=== PATIENT | male | born 1955 | race Caucasian/White ===

== ENCOUNTER 2020-11-17 19:29 | Emergency (ER) | payer MEDICAID, MEDICARE ==
[2020-11-17] MEDS ORDERED: fentaNYL 100 MCG/2 ML SDV IVPUSH ONE (20:33)
[2020-11-17] MEDS: Sodium Chloride 0.9% 10 ML Syringe FLUSH PRN ×2 (20:47→22:39)
[2020-11-17] MEDS ORDERED: Ondansetron 4 MG/2 ML SDV IVPUSH ONE (20:50)
[2020-11-17] MEDS ORDERED: Sodium Chloride 0.9% 10 ML SDV FLUSH ONE (22:24)
[2020-11-17] MEDS ORDERED: Iopamidol 612 MG/ML 100 ML Bottle IV PRN (22:24)
[2020-11-17] MEDS ORDERED: methylPREDNISolone Sod Succ 250 MG in Dextrose 5% in Water 100 ML IV ONE ×2 (22:24)
[2020-11-17] MEDS ORDERED: Clindamycin Phosphate 900 MG in Sodium Chloride 0.9% 100 ML IV ONE (22:27)
[2020-11-17] MEDS ORDERED: Sodium Chloride 0.9% 100 ML IV SCH (22:30)
[2020-11-17] MEDS ORDERED: Sodium Chloride 0.9% 1,000 ML IV SCH (22:30)
--- NOTE | 2020-11-18 00:22 | EDM.PDOC ---
<Korina Medeiros - Last Filed: 11/18/20 00:26> ED HPI GENERAL MEDICAL PROBLEM - General Chief Complaint: ENT Problem Stated Complaint: SORE THROAT Time Seen by Provider: 11/17/20 20:45 Source of Information: Reports: Patient, Family, RN Notes Reviewed History Limitations: Reports: No Limitations - History of Present Illness INITIAL COMMENTS - FREE TEXT/NARRATIVE: Nirmal presents today for complaints of sore throat for 7 to 9 days. He states he was recently informed he was diabetic and started use of metformin. He reports pain with swallowing, eating and difficulty swallowing. He denies fever, chills, nausea, vomiting, change in bowel/bladder function. He has not tried use of any OTC medications. throat Pain Score (Numeric/FACES): 8 - Related Data Allergies Allergy/AdvReac Type Severity Reaction Status Date / Time No Known Allergies Allergy Verified 11/17/20 20:15 Home Meds: Home Meds Empagliflozin [Jardiance] 10 mg PO DAILY 11/17/20 [History] metFORMIN [Glucophage] 500 mg PO BIDMEALS 11/17/20 [History] Past Medical History Endocrine/Metabolic History: Reports: Diabetes, Type II, Other (See Below) Other Endocrine/Metabolic History: diagnosed on wednesday11/15/20 - Infectious Disease History Infectious Disease History: Reports: Chicken Pox, Measles, Mumps - Past Surgical History GI Surgical History: Reports: Appendectomy, Cholecystectomy, Hernia, Abdominal Endocrine Surgical History: Reports: None Social & Family History - Family History Family Medical History: No Pertinent Family History - Tobacco Use Tobacco Use Status *Q: Never Tobacco User - Recreational Drug Use Recreational Drug Use: No ED ROS ENT - Review of Systems Review Of Systems: See Below Constitutional: Reports: No Symptoms HEENT: Reports: Throat Pain, Throat Swelling. Denies: Ear Discharge, Ear Pain, Nose Pain, Sinus Problem Respiratory: Denies: Shortness of Breath, Wheezing, Cough, Sputum Cardiovascular: Reports: No Symptoms Endocrine: Reports: No Symptoms GI/Abdominal: Reports: No Symptoms : Reports: No Symptoms Musculoskeletal: Reports: No Symptoms Skin: Reports: No Symptoms Neurological: Reports: No Symptoms Psychiatric: Reports: No Symptoms Hematologic/Lymphatic: Reports: No Symptoms Immunologic: Reports: No Symptoms ED EXAM, ENT - Physical Exam Exam: See Below Exam Limited By: No Limitations General Appearance: Alert, WD/WN, Mild Distress Eye Exam: Bilateral Eye: Normal Inspection, PERRL Ears: Normal External Exam, Normal Canal, Hearing Grossly Normal, Normal TMs. No: Canal Discharge, TM Bulging, TM Erythema Nose: Normal Inspection, Normal Mucousa, No Blood Mouth/Throat: Muffled Voice, Throat Pain, Throat Swelling, Tonsillar Erythema (right side, unable to visualize uvula due to edema. Airway maintained, no wheezing or stridor. ), Tonsillar Swelling, Trismus. No: Tonsillar Exudates Head: Atraumatic, Normocephalic Neck: Limited Range of Motion, Lymphadenopathy (R), Tender Lateral Respiratory/Chest: No Respiratory Distress, Lungs Clear, Normal Breath Sounds, No Accessory Muscle Use, Chest Non-Tender. No: Crackles, Rales, Rhonchi, Wheezing Cardiovascular: Normal Peripheral Pulses, Regular Rate, Rhythm, No Edema, No Gallop, No Murmur, No Rub Back: Normal Inspection, Full Range of Motion Extremities: Normal Inspection, Normal Range of Motion, Non-Tender, No Pedal Edema, Normal Capillary Refill Neurological: Alert, Oriented, Normal Cognition, Normal Gait Psychiatric: Normal Affect, Normal Mood Skin: Warm, Dry, Intact, Normal Color, No Rash Course - Orders/Labs/Meds Labs: Patient lab work reviewed, Creat 0.8, CT soft tissues neck with contrast ordered. No difficulty with breathing. - Re-Assessments/Exams Free Text/Narrative Re-Assessment/Exam: 11/18/20 00:26 Dr. Francisco to assume care, report provided. All questions answered. Departure - Departure Disposition: DC/Tfer to Other Clinical Impression: Peritonsillar abscess - Discharge Information Instructions: Peritonsillar Abscess, [id number] Referrals: Lyndon Almanzar MD [Primary Care Provider] - Forms: ED Department Discharge Care Plan Goals: Go directly to to be evaluated in the emergency room for evaluation and treatment of peritonsillar abscess. Sepsis Event Note (ED) - Evaluation Sepsis Screening Result: No Definite Risk <Ryan Francisco - Last Filed: 11/18/20 01:46> Course - Vital Signs Last Recorded V/S: Last Vital Signs Temp 99.1 F 11/18/20 01:02 Pulse 82 11/18/20 01:02 Resp 20 11/18/20 01:02 BP 157/82 H 11/18/20 01:02 Pulse Ox 96 11/18/20 01:02 - Orders/Labs/Meds Orders: Active Orders 24 hr Category Date Time Status CULTURE STREP A CONFIRMATION [] Stat Lab 11/17/20 20:33 Results STREP SCRN A RAPID W CULT CONF [RM] Stat Lab 11/17/20 20:33 Results Saline Lock Insert [OM.PC] Routine Oth 11/17/20 20:33 Ordered Labs: Laboratory Tests 11/17/20 11/17/20 Range/Units 20:41 20:41 WBC 15.2 H (4.5-11.0) K/uL RBC 6.32 H (4.30-5.90) M/uL Hgb 17.5 H (12.0-15.0) g/dL Hct 53.2 (40.0-54.0) % MCV 84 (80-98) fL MCH 28 (27-31) pg MCHC 33 (32-36) % Plt Count 244 (150-400) K/uL Neut % (Auto) 83 H (36-66) % Lymph % (Auto) 9 L (24-44) % [place] % (Auto) 7 H (2-6) % Eos % (Auto) 1 L (2-4) % Baso % (Auto) 0 (0-1) % Sodium 135 L (140-148) mmol/L Potassium 4.2 (3.6-5.2) mmol/L Chloride 98 L (100-108) mmol/L Carbon Dioxide 13 L (21-32) mmol/L Anion Gap 28.2 H (5.0-14.0) mmol/L BUN 15 (7-18) mg/dL Creatinine 0.8 (0.8-1.3) mg/dL Est Cr Clr Drug Dosing 83.07 mL/min Estimated GFR (MDRD) > 60 (>60) Glucose 174 H (74-106) mg/dL Calcium 9.3 (8.5-10.1) mg/dL Meds: Medications Discontinued Medications Generic Name Dose Route Start Last Admin Trade Name Freq PRN Reason Stop Dose Admin Fentanyl 100 mcg 11/17/20 20:33 11/17/20 20:44 Fentanyl 100 Mcg/2 Ml Sdv IVPUSH 11/17/20 20:34 100 mcg ONETIME ONE Administration Sodium Chloride 100 mls @ 3 mls/sec 11/17/20 22:30 Normal Saline IV ASDIRECTED BIANCA Methylprednisolone Sodium 104 mls @ 200 mls/hr 11/17/20 22:24 11/17/20 23:41 Succinate 250 mg/ Dextrose/ IV 11/17/20 22:55 200 mls/hr Water ONETIME ONE Administration Clindamycin Phosphate 900 mg/ 106 mls @ 200 mls/hr 11/17/20 22:27 11/18/20 00:15 Sodium Chloride IV 11/17/20 22:58 200 mls/hr ONETIME ONE Administration Sodium Chloride 1,000 mls @ 125 mls/hr 11/17/20 22:30 11/17/20 23:40 Normal Saline IV 125 mls/hr ASDIRECTED BIANCA Administration Iopamidol 100 ml 11/17/20 22:24 11/17/20 22:40 Iopamidol 612 Mg/Ml 100 Ml Bottle IV 11/18/20 22:25 100 ml . DIRECTED PRN Administration RADIOLOGY EXAM Ondansetron HCl 4 mg 11/17/20 20:50 11/17/20 23:48 Ondansetron 4 Mg/2 Ml Sdv IVPUSH 11/17/20 20:51 4 mg ONETIME ONE Administration Sodium Chloride 10 ml 11/17/20 20:33 11/17/20 22:39 Sodium Chloride 0.9% 10 Ml Syringe FLUSH 10 ml ASDIRECTED PRN Administration Keep Vein Open Sodium Chloride 10 ml 11/17/20 22:24 11/17/20 22:41 Sodium Chloride 0.9% 10 Ml Sdv FLUSH 11/17/20 22:25 10 ml ONETIME ONE Administration - Re-Assessments/Exams Free Text/Narrative Re-Assessment/Exam: 11/18/20 01:14 IMPRESSION: Prominent edema and soft tissue swelling at the level of the right tonsil consistent with tonsillitis with a peritonsillar abscess measuring up to 3.1 centimeters. This causes significant narrowing of the oropharynx. Above CT report was received, this was discussed with [facility] in [place] and he was accepted for transfer by Dr. Howell. Patient will be transported by private car. Departure - Departure Time of Disposition: 01:27 Sepsis Event Note (ED) - Focused Exam Vital Signs: Vital Signs Temp Pulse Resp BP Pulse Ox 11/18/20 01:02 99.1 F 82 20 157/82 H 96 11/17/20 22:43 79 154/88 H 11/17/20 21:36 170/87 H 11/17/20 20:41 87 14 165/100 H 11/17/20 20:27 99.1 F 95 16 173/108 H 92 L
--- NOTE | 2020-11-18 00:43 | CRLCT ---
INDICATION: Edema and right tonsillar pain TECHNIQUE: CT soft tissue of the neck was acquired with 100 cc Isovue-300 intravenous contrast. COMPARISON: None FINDINGS: Included intracranial structures are unremarkable. Chronic left maxillary sinus disease. Parotid and submandibular glands are unremarkable. Left submandibular lymph nodes measure up to 8 millimeters in short axis. Right jugular level 2 lymph nodes measure 10 millimeters. Extensive soft tissue swelling involving the region of the right tonsillar pillar extending into the parapharyngeal space causing significant narrowing of the oropharynx. Rim enhancing hypodense area in the retro tonsillar tissues measuring 3.1 x 2.9 x 2.1 centimeters (3, 32; 5, 26). Jugular veins patent. Edema structures to the region of the right area epiglottic fold so the epiglottis itself is unremarkable. Thyroid gland unremarkable. Lung apices clear. Mild degenerative disc disease cervical spine. IMPRESSION: Prominent edema and soft tissue swelling at the level of the right tonsil consistent with tonsillitis with a peritonsillar abscess measuring up to 3.1 centimeters. This causes significant narrowing of the oropharynx. Please note that all CT scans at this facility use dose modulation, iterative reconstruction, and/or weight-based dosing when appropriate to reduce radiation dose to as low as reasonably achievable. Dictated by Tom Townsend MD @ 11/18/2020 12:42:[address] Tom Townsend @ Nov 18 2020 12:42AM
== END 2020-11-18 01:27 | disposition other institution (70) ==
LOC: JP.ED 19:29
DX: J36 Peritonsillar abscess (principal); E11.9 Type 2 diabetes mellitus without complications; Z79.4 Long term (current) use of insulin
CPT/HCPCS: 36415; 70491; 80048; 85025; 87081; 87880; 96365; 96367; 96375; 99284; 99285; J2405; J2930; J3010; J3490; J7030; Q9967